=== PATIENT | female | born 2000 | race Two or more races ===

== ENCOUNTER 2020-01-08 22:30 | Emergency (ER) | payer OTHER ==
[2020-01-08 23:42] VITALS: BP 119/77
[2020-01-09] MEDS ORDERED: HYDROCODONE/ACETAMINOPHEN 5-325 MG TABLET PO ONE (01:11)
--- NOTE | 2020-01-09 01:29 | ER Document Report ---
HPI - HPI Patient complains to provider of: Knee injury Time Seen by Provider: 01/09/20 01:07 Onset: Yesterday Onset/Duration: Sudden Quality of pain: Achy Pain Level: 4 Context: Patient was standing on a stepladder and fell off the second step. Patient states that she landed on her foot although this joleen her right knee. Patient states that she has had persistent right knee pain that feels as though is going to give out. Patient denies any other injury. Associated Symptoms: Other - Right knee pain Exacerbated by: Standing, Movement, Walking Relieved by: Denies Similar symptoms previously: No Recently seen / treated by doctor: No - ROS ROS below otherwise negative: Yes Systems Reviewed and Negative: Yes All other systems reviewed and negative - NEURO Neurology: DENIES: Weakness - GASTROINTESTINAL Gastrointestinal: DENIES: Nausea - REPRODUCTIVE LMP: 12/19/19 - MUSCULOSKELETAL Musculoskeletal: REPORTS: Extremity pain - Right knee - DERM Skin Color: Normal Skin Problems: None Past Medical History - General Information source: Patient - Social History Smoking Status: Never Smoker Frequency of alcohol use: None Drug Abuse: None Occupation: None Family History: Reviewed & Not Pertinent - Medical History Medical History: Negative Surgical Hx: Negative Vertical Provider Document - CONSTITUTIONAL Agree With Documented VS: Yes Exam Limitations: No Limitations General Appearance: WD/WN, No Apparent Distress - HEENT HEENT: Atraumatic, Normocephalic - NECK Neck: Normal Inspection, Supple - RESPIRATORY Respiratory: Breath Sounds Normal, No Respiratory Distress - CARDIOVASCULAR Cardiovascular: Regular Rate, Regular Rhythm Pulses: Normal: Dorsalis pedis - MUSCULOSKELETAL/EXTREMETIES Musculoskeletal/Extremeties: MAEW, Tender - Right knee joint tenderness to lateral compartment, no effusion, no laxity with varus or valgus maneuvers. Patellar tendon intact, No Edema. negative: Eccymosis - NEURO Level of Consciousness: Awake, Alert, Appropriate Motor/Sensory: No Motor Deficit - DERM Integumentary: Warm, Dry, No Rash Course - Re-evaluation Re-evalutation: 01/09/20 01:36 Patient without any fracture or dislocation, will immobilize and refer to orthopedics at this time. Good return precautions discussed with patient. - Vital Signs Vital signs: Temp Pulse Resp BP Pulse Ox 99.0 F 98 15 119/77 98 01/08/20 23:39 01/08/20 23:39 01/08/20 23:39 01/08/20 23:39 01/08/20 23:39 - Diagnostic Test Radiology reviewed: Pending, Image reviewed Procedures - Immobilization Right Knee Pre-Proc Neuro Vasc Exam: Normal Immobilizer type: Knee immobilizer Performed by: PCT Post-Proc Neuro Vasc Exam: Normal Alignment checked and good: Yes Discharge - Discharge Clinical Impression: Right knee sprain Qualifiers: Encounter type: initial encounter Involved ligament of knee: unspecified ligament Qualified Code(s): S83.91XA - Sprain of unspecified site of right knee, initial encounter Condition: Stable Disposition: HOME, SELF-CARE Instructions: Use of Crutches ([facility]), Ice & Elevation ([facility]), Knee Immobilizing Splint ([facility]), Sprained Knee ([facility]) Additional Instructions: Return immediately for any new or worsening symptoms Followup with your primary care provider, call tomorrow to make a followup appointment Weightbearing as tolerated Follow-up with orthopedics for any persistent pain or problems Prescriptions: Naproxen [Naprosyn 250 Nmg Tablet] 1 tab PO BID #14 tablet Referrals: [facility] [Provider Group] - Follow up as needed
--- NOTE | 2020-01-09 01:48 | RADIOLOGY REPORT (SQ) ---
CLINICAL HISTORY: fall, r knee pain COMPARISON: None. TECHNIQUE: XR KNEE 4 OR MORE VIEWS 01/09/2020 1:11 AM CDT FINDINGS: There is no fracture. Joint spaces are preserved. Soft tissues are unremarkable. IMPRESSION: No acute osseous findings.
== END 2020-01-09 01:52 | disposition home or self-care (01) ==
LOC: ER 22:30
DX: S83.91XA Sprain of unspecified site of right knee, initial encounter (principal); M25.561 Pain in right knee; W11.XXXA Fall on and from ladder, initial encounter
CPT/HCPCS: 99283